=== PATIENT | male | born 1965 | race Caucasian/White ===

== ENCOUNTER 2017-06-29 13:41 | Emergency (ER) | payer BC ==
[2017-06-29] MEDS ORDERED: DIPH,PERTUS(ACELL)TETVAC-LF 0.5 ML VIAL IM ONE (13:51)
--- NOTE | 2017-06-29 13:56 | ED ---
Upper Extremity HPI <Juanita Miily - Last Filed: 06/29/17 15:19> - General Source: patient, RN notes reviewed - History of Present Illness MD Complaint: Injury to:: left, forearm <CaleLayton - Last Filed: 06/29/17 15:26> - General Stated Complaint: lac on arm to bone from saw Time Seen by Provider: 06/29/17 13:46 - History of Present Illness Initial Comments: This is a 51-year-old male with a benign history who states he was using a power miter saw when he actually cut his left dorsal forearm. He states he has pain she may have hit the bone he denies any loss of function however to his fingers or hand distally no numbness or loss of function. No other injury reported. He is not known when his last tetanus shot was was many years ago. No other contributory factors at this time (Layton Madsen) - Related Data Home Medications Medication Instructions Recorded Confirmed No Known Home Medications [No 02/20/16 02/20/16 Known Home Medications] Allergies Allergy/AdvReac Type Severity Reaction Status Date / Time latex Allergy Rash/Hives Verified 02/20/16 15:02 iodine AdvReac Rash/Hives Verified 02/20/16 15:02 Review of Systems ROS Other: All systems not noted in ROS Statement are negative. <Juanita Miily - Last Filed: 06/29/17 15:19> ROS Other: All systems not noted in ROS Statement are negative. <CaleLayton - Last Filed: 06/29/17 15:26> ROS Statement: Those systems with pertinent positive or pertinent negative responses have been documented in the HPI. Past Medical History Past Medical History: No Reported History History of Any Multi-Drug Resistant Organisms: None Reported Past Surgical History: Tonsillectomy Past Anesthesia/Blood Transfusion Reactions: No Reported Reaction, Motion Sickness Smoking Status: Never smoker - Past Family History Mother Family Medical History: CVA/TIA <Layton Madsen - Last Filed: 06/29/17 15:26> General Exam <Sophie Mi - Last Filed: 06/29/17 15:19> Limitations: physical limitation General appearance: alert, anxious Head exam: Present: atraumatic, normocephalic, normal inspection Eye exam: Present: normal appearance, PERRL, EOMI. Absent: scleral icterus, conjunctival injection, periorbital swelling Neck exam: Present: normal inspection Extremities exam: Present: full ROM, tenderness, normal capillary refill, other (There is approximately 2-3 cm laceration across the distal dorsal left forearm no definite evidence of foreign body or tendinous involvement. Distally there is no sensorimotor or vascular deficits. He does have full range of motion with no evidence of other injury. Capillary refills less than 2 seconds.) Neurological exam: Present: alert, oriented X3, CN II-XII intact Psychiatric exam: Present: normal affect, normal mood Skin exam: Present: warm, dry, normal color. Absent: intact <Layton Madsen - Last Filed: 06/29/17 15:26> - General Exam Comments Initial Comments: This is a well-developed well-nourished awake alert oriented times 3 male he does demonstrate a [place] Coma Scale of 15 (Layton Madsen) Course <Sophie Mi - Last Filed: 06/29/17 15:19> <Layton Madsen - Last Filed: 06/29/17 15:26> Vital Signs 06/29/17 13:52 Temperature 98.2 F Pulse Rate 83 Respiratory 16 Rate Blood Pressure 158/111 O2 Sat by Pulse 97 Oximetry - Reevaluation(s) Reevaluation #1: 06/29/17 14:49 The patient's wound was cared for and repaired by my physician stores assistant Sophie. (Layton Madsen) Procedures - Laceration Laceration #1 Consent Obtained: verbal consent Indication: laceration Site: upper extremity (left forearm) Size (cm): 3 Description: linear Depth: simple, single layer Anesthetic Used: lidocaine 1% Anesthesia Technique: local infiltration Amount (mls): 5 Pre-repair: wound explored, irrigated extensively Type of Sutures: nylon Size of Sutures: 5-0 Number of Sutures: 5 Technique: simple, interrupted Patient Tolerated Procedure: well, no complications <Sophie Mi - Last Filed: 06/29/17 15:19> <Layton Madsen - Last Filed: 06/29/17 15:26> - Laceration Laceration #1 Additional Comments: Wound was copiously irrigated with 1L of saline. Patient is N/V intact. ( Sophie Mi) Medical Decision Making <Sophie Mi - Last Filed: 06/29/17 15:19> - Radiology Data Radiology results: image reviewed (No evidence of any bony involvement no foreign body seen. Some evidence of subcutaneous air at the site) <Layton Madsen - Last Filed: 06/29/17 15:26> - Medical Decision Making The patient had the laceration repaired by my. No other findings I did discuss this with the family and with the patient. He will be discharged (Layton Madsen) Disposition <Sophie Mi - Last Filed: 06/29/17 15:19> <Layton Madsen - Last Filed: 06/29/17 15:26> Clinical Impression: Forearm laceration, Laceration of forearm, left Disposition: HOME SELF-CARE Condition: Good Instructions: Laceration (ED) Referrals: Jay Mayberry MD [Primary Care Provider] - 1-2 days
--- NOTE | 2017-06-29 15:03 | XR ---
EXAMINATION TYPE: XR forearm LT DATE OF EXAM: 06/29/2017 COMPARISON: NONE HISTORY: 51-year-old male with pain after injury with a saw. TECHNIQUE: 2 views FINDINGS: There is soft tissue swelling and a focal soft tissue laceration along the dorsal aspect of the dista l forearm/proximal wrist. No acute fracture, subluxation, or dislocation or retained radiopaque foreign body seen. No elbow leon nt effusion. Enthesopathy at the olecranon. IMPRESSION: Soft tissue injury with a focal laceration along the dorsal aspect of the distal forearm. Associated soft tissue swelling. No acute osseous abnormality seen.
[2017-06-29 15:32] VITALS: BP 149/92; PULSE 65; RESP 18; TEMP 98.5
== END 2017-06-29 15:32 | disposition home or self-care (01) ==
LOC: EC 13:41
DX: S51.812A Laceration without foreign body of left forearm, initial encounter (principal); Z23 Encounter for immunization; Z91.040 Latex allergy status; Z88.8 Allergy status to other drugs, medicaments and biological substances; W31.2XXA Contact with powered woodworking and forming machines, initial encounter; Y92.009 Unspecified place in unspecified non-institutional (private) residence as the place of occurrence of the external cause
CPT/HCPCS: 12002; 90471; 90715; 99283

== ENCOUNTER 2020-12-08 07:35 | Day surgery (SDC) | payer BC ==
[2020-12-05 11:15] VITALS: BMI 27.0
[~2020-12-08 07:35] MED LIST: LACTATED RINGERS 1,000 ML IV SCH
[2020-12-08 07:51] VITALS: TEMP 97.8
[2020-12-08] MEDS ORDERED: LACTATED RINGERS 1,000 ML IV ONE (07:52)
[2020-12-08] MEDS ORDERED: PROPOFOL 10 MG/ML 20 ML VIAL IV ONE (08:34)
[2020-12-08] MEDS ORDERED: LIDOCAINE 1% INJ 10MG/ML (20 ML MDV) ONE (08:34)
--- NOTE | 2020-12-08 08:55 | P.PCN ---
Date of Procedure: 12/08/20 Procedure(s) Performed: BRIEF HISTORY: Patient is a 55-year-old pleasant white male scheduled for an elective colonoscopy as a part of evaluation of prior history of colon polyps. Last colonoscopy was 5 years ago. PROCEDURE PERFORMED: Colonoscopy. PREOPERATIVE DIAGNOSIS: History of colon polyps. IV sedation per Anesthesia. PROCEDURE: After informed consent was obtained, the patient, was brought into the endoscopy unit. IV sedation was administered by Anesthesia under continuous monitoring. Digital rectal examination was normal. Initially the Olympus CF-160 flexible video colonoscope was then inserted in the rectum, gradually advanced into the cecum without any difficulty. Careful examination was performed as the scope was gradually being withdrawn. Ileocecal valve and the appendiceal orifice were visualized and appeared normal. Prep was excellent. Mucosa of the cecum, ascending colon, transverse colon, descending colon, sigmoid colon, and rectum appeared normal. Retroflexion was performed in the rectum and no lesions were seen. The patient tolerated the procedure well. IMPRESSION: Normal-appearing colon from rectum to cecum with no evidence of colorectal neoplasia . RECOMMENDATIONS: Findings of this examination were discussed with the patient as well as his family. He was advised to have a repeat screening colonoscopy in 10 years.
[2020-12-08 09:01] VITALS: RESP 16
[2020-12-08 09:15] VITALS: BP 160/103; PULSE 64
== END 2020-12-08 09:29 | disposition home or self-care (01) ==
LOC: ORWHC2ENDO 07:35
PROVIDERS: ATTEND Internal Medicine Gastroenterology
DX: Z12.11 Encounter for screening for malignant neoplasm of colon (principal); Z86.010 Personal history of colon polyps; Z91.040 Latex allergy status; Z91.048 Other nonmedicinal substance allergy status
CPT/HCPCS: J2001; J2704; G0105; 45378

== ENCOUNTER → 2021-02-26 | Outpatient (CLI) | payer BC ==
--- NOTE | 2021-02-26 11:32 | MR ---
EXAMINATION TYPE: MR angio head wo con DATE OF EXAM: 02/26/2021 COMPARISON: HISTORY: Intermittent pain behind rt eye, family hx of brain aneurysm/stroke. TECHNIQUE: Time of flight images focusing on the [place] were performed without contrast. 3- dimensional reconstructions performed on an alternate workstation. FINDINGS: Anterior and posterior circulation is intact. Left vertebral artery is dominant. There is n o evident aneurysm, stenosis, embolus, or dissection. IMPRESSION: Normal [place] MRA.
--- NOTE | 2021-02-26 11:34 | MR ---
MR venography HISTORY: Pain behind right eye MR family history of brain aneurysm, stroke [id number] imaging obtained through the brain. Three-dimensional reconstructions performed on an alternate workstation. Sagittal sinuses, transverse sinus, sigmoid sinus, straight sinus, cortical and cerebral veins appear patent. Some stenosis present along the sagittal sinus posteriorly may be normal variant as well as a focal narrowing present in the transverse sinus on the left near the confluence. Filling defect laura ntified proximal to the confluence of the transverse sinuses is indeterminate, there is flow proximal and distal to the area, findings felt likely to represent flow related artifact. IMPRESSION: Areas of narrowing, filling defect as described of questionable clinical significance, amador waggoner flow related artifact, normal variants. Contrast-enhanced exam could be performed for additional evaluation as indicated.
== END | disposition home or self-care (01) ==
LOC: RADMRIMAIN 08:37
PROVIDERS: ATTEND Internal Medicine
DX: R51.9 Headache, unspecified (principal); Z82.49 Family history of ischemic heart disease and other diseases of the circulatory system
CPT/HCPCS: 70544